=== PATIENT | male | born 1960 | race Caucasian/White ===

== ENCOUNTER → 2019-07-03 17:14 | Outpatient (CLI) | payer OTHER, SELFPAY ==
[2019-07-03 18:33] LABS: Cholesterol 235 mg/dL (200); High Density Lipoprotein 59 mg/dL; PSA,Total - Annual Screen 0.68 ng/mL (0.00-4.00); Triglycerides 253 mg/dL; Very Low Density Lipoprotein 51 mg/dL (5-40)
== END ==
PROVIDERS: PCP Family Medicine; Referring Provider Family Medicine; Visit Provider Family Medicine
DX: Z00.00 Encounter for general adult medical examination without abnormal findings (principal)
CPT/HCPCS: 36415; 80061; 84153; G0103

== ENCOUNTER → 2021-09-19 | Outpatient (CLI) | payer BC, OTHER, SELFPAY ==
--- NOTE | 2021-09-19 07:39 | VDLE_ITS ---
Reason For Study: Chronic venous insufficiency RIGHT LEFT CFV is compressible, spontaneous, phasic, CFV is compressible, spontaneous, phasic, competent and demonstrates normal competent, and demonstrates normal augmentation. augmentation. FV is compressible, spontaneous, phasic, FV is compressible, spontaneous, phasic, competent and demonstrates normal competent and demonstrates normal augmentation. augmentation. POP V is compressible, spontaneous, phasic, POP V is compressible, spontaneous, phasic, competent and demonstrates normal competent and demonstrates normal augmentation. augmentation. T/P Trunk is compressible. T/P Trunk is compressible. PTV is compressible. PTV is compressible. RT PerV is compressible. LT PerV is compressible. SFJ is competent and measures 0.56 x 0.58 cm. SFJ is INCOMPETENT and measures 1.23 x 1.50 GSV proximal thigh measures 0.52 x 0.53 cm. cm. GSV at knee measures 0.49 x 0.52 cm. GSV proximal thigh measures 0.77 x 0.86 cm. GSV INCOMPETENT throughout for greater than GSV at knee measures 0.16 x 0.16 cm. 0.5 seconds. GSV INCOMPETENT throughout for greater than ASV proximal calf is INCOMPETENT for greater 0.5 seconds. than 0.5 seconds and measures 0.20 x 0.18 cm. ASV distal thigh is INCOMPETENT for greater ASV mid calf is INCOMPETENT for greater than than 0.5 seconds and measures 0.75 x 0.83 cm. 0.5 seconds and measures 0.19 x 0.20 cm. ASV proximal calf is INCOMPETENT for greater SSV at junction is competent and measures than 0.5 seconds and measures 0.41 x 0.51 cm. 0.35 x 0.35 cm. SSV at junction is competent and measures Procedure 0.25 x 0.27 cm. This is a venous duplex using B-mode, color flow and spectral Doppler. Exam performed in department. VL/Venous Duplex US - Jerald Extrem Interpretation Summary Deep veins of the lower extremities are bilaterally patent and compressible seg mentally. There is no evidence of deep vein thrombosis on either side. Valvular competence appears in tact within the proximal deep venous systems bilaterally. The great saphenous veins appear bila terally patent and compressible segmentally. The right sapheno-femoral junction is competent . The left sapheno-femoral junction is incompetent . Segmental valvular incompetence is noted within the g reat saphenous veins bilaterally. Small saphenous veins are patent and competent bilaterally. The ac cessory saphenous vein in the right proximal calf is incompetent. The accessory saphenous vein in the right mid-calf is incompetent. The accessory saphenous vein in the left distal thigh is incomp etent. The accessory saphenous vein in the left proximal calf is incompetent. Ordering Physician: Dariel Marte Referring Physician: Anitra Arana M.D. Performed By: Marnie Wright RVT
== END | disposition home or self-care (01) ==
PROVIDERS: PCP Family Medicine; Referring Provider Surgery; Visit Provider Surgery
DX: I87.2 Venous insufficiency (chronic) (peripheral) (principal)
CPT/HCPCS: 93970

== ENCOUNTER → 2021-12-19 | Outpatient (CLI) | payer BC, OTHER, SELFPAY ==
[2021-12-19 12:33] LABS: Hematocrit 42.3 % (40-54); Hemoglobin 14.1 g/dL (13.0-16.5); Mean Corp Hgb Conc 33.3 g/dL (32-36); Mean Corpuscular Hgb 29.3 pg (27.0-32.0); Mean Corpuscular Volume 87.8 fL (80-94); Mean Platelet Vol. 11.2 fl (6.2-12.0); Platelet Count 154 K/mm3 (150-450); RBC Distribution Width CV 13.5 % (11.6-14.6); RBC Distribution Width SD 43.6 fl (35.1-43.9); Red Blood Count 4.82 M/mm3 (4.6-6.2); White Blood Count 4.4 K/mm3 (4.4-11.0)
[2021-12-19 13:03] LABS: Anion Gap 6 (5-15); BUN 26 mg/dL (7-18); BUN/Creat Ratio 24.5 RATIO (10-20); Calcium,Total 9.5 mg/dL (8.5-10.1); Chloride 105 mmol/L (98-107); Creatinine, Serum 1.06 mg/dL (0.70-1.30); EST Glomerular Filtration Rate 76 mL/min (>60); Est Glom Filt Rate - Afr Amer 92 mL/min (>60); Glucose 82 mg/dL (74-106); Potassium 4.3 mmol/L (3.5-5.1); Sodium Level 139 mmol/L (136-145)
== END | disposition home or self-care (01) ==
LOC: LAB 11:35
PROVIDERS: PCP Family Medicine; Referring Provider Surgery; Visit Provider Surgery
DX: Z01.812 Encounter for preprocedural laboratory examination (principal)
CPT/HCPCS: 36415; 80048; 85027

== ENCOUNTER → 2021-12-30 | Outpatient (CLI) | payer BC, OTHER, SELFPAY ==
--- NOTE | 2021-12-30 15:28 | EKG12_ITS ---
Test Reason : PRE OP Blood Pressure : / mmHG Vent. Rate : 055 BPM Atrial Rate : 055 BPM P-R Int : 110 ms QRS Dur : 088 ms QT Int : 426 ms P-R-T Axes : 035 047 048 degrees QTc Int : 407 ms Sinus bradycardia with short MO Otherwise normal ECG Confirmed by MORGAN GERMAN, DEMETRICE ([id number]), social media editor SVETLANA DILLARD ([id number]) on 12/31/2021 8:28:43 AM Referred By: Dariel Marte Confirmed By:DEMETRICE MORA MD
== END | disposition home or self-care (01) ==
LOC: PSN 15:28
PROVIDERS: PCP Family Medicine; Referring Provider Surgery; Visit Provider Surgery
DX: Z01.810 Encounter for preprocedural cardiovascular examination (principal); Z01.812 Encounter for preprocedural laboratory examination
CPT/HCPCS: 93005

== ENCOUNTER 2022-05-06 08:35 | Emergency (ER) | payer OTHER, BC, SELFPAY ==
[2022-05-06 08:36] VITALS: BP 105/76; PULSE 60; RESP 16; TEMP 36.1; O2SAT 100; BMI 25.0
--- NOTE | 2022-05-06 09:30 | EDS_ITS ---
HPI History of Present Illness Chief Complaint: Laceration Detail of Chief Complaint: 6 cm laceration dorsum left hand between the first and second metacarpal cynthia Informant: patient Occured/Mechanism Mechanism/Context: Yes injury Comment: Patient was using a device at work. She sustained a laceration between the first and second metacarpal bone and webspace between the thumb and index finger dorsum of the left hand. Onset/Context/Timing Onset: Hours Context: Sudden Onset Location: Dorsum of left hand Current Severity: Patient has no pain. Maximum Severity: Mild Worsened by: Initial injury Relieved by: Nothing Associated Symptoms Associated Symptoms: Negative for Parasthesia, Weakness or Loss of Funtion Narrative Narrative: Patient is a 61-year-old [id number] male presents with laceration to the dorsum of his right hand. The laceration is sick centimeters in length. He denies paresthesia, anesthesia medics. Tetanus is not up-to-date. He is not on an anticoagulant. He has no history of rheumatic fever, heart murmur SBE or being on immunosuppressive meds. He has no allergies to antibiotics. He denies loss of use of his left hand, fingers or thumb. Tetanus Immunization: Unknown Prior similar symptoms: No Recent Illness/Hospitalization: No PFSH PFSH Medical History no medical history no medical history Allergy/AdvReac Type Severity Reaction Status Date / Time No Known Allergies Allergy Verified 05/06/22 08:36 Social History (Updated 05/06/22 @ 09:[address] Arsen Jeffries MD) substance use type: does not use ROS ROS ED Constitutional Constitutional ED: Denies chills, fever(s), subjective, sweats or weight loss Cardiovascular Cardiovascular: Reports other Details: Further detail HPI narrative ; Denies chest pain, palpitations or racing heartbeat Gastrointestinal Gastrointestinal: Denies nausea or vomiting Integumentary Reports other Details: Further detail HPI narrative ; Denies abscess, Abrasions or rash Neurologic Neurologic: Denies paresthesias or weakness Hematologic/Lymphatic Hematologic/Lymphatic: Denies easy bleeding or easy bruising EXAM Physical Exam Const Vital Signs: 05/06/22 08:36 Temperature 96.9 F L Temperature Source Temporal Pulse Rate 60 Respiratory Rate 16 Blood Pressure 105/76 Blood Pressure Mean 85 Pulse Ox 100 Oxygen Delivery Method Room Air Positive well nourished and well developed General Appearance ED: well developed and NAD; Negative for cyanotic or diapho retic HEENT normocephalic and atraumatic Eyes PERRL and EOMs intact bilaterally Neck full ROM Resp normal respiratory effort and clear to auscultation bilaterally Cardio regular rate, regular rhythm, S1 normal heart sound, S2 normal heart sound and no murmurs Extremity Negative for normal to inspection Extremity Narrative: Laceration between the first and second metacarpal bone dorsal surface left hand involving the webspace. The laceration is 6 cm in length. The laceration does not violate the fascia. Capillary refill is intact. Sensation is intact. The extensor and Reveles tendon is functionally intact. The extensor and the side tendon, extensor pollicis longus were not visualized. They are both functionally intact. Neuro oriented x3, CN's II-XII intact bilaterally, no focal motor deficits and no sensory deficits noted Sensorium / Orientation: alert Skin Skin Narrative: Laceration as previously noted MDM MDM MDM Narrative Medical decision making narrative: Tetanus was updated. Wound was repaired. Please read procedure note. Patient presents from work. Procedures Other Procedures Procedure(s): Repair of left hand laceration. The wound was anesthetized by local filtration using 1% lidocaine. Total of 3 cc was infiltrated. The wound was cleansed. Using 5-0 Ethilon simple interrupted sutures were placed. A total of 15 sutures was placed. Patient tolerated procedure well. Good cosmesis and hemostasis. Discharge Plan Triage Chief Complaint: Laceration ED Provider: Arsen Jeffries Dx/Rx/DC Orders Clinical Impression: Laceration of hand, left Instructions: ED Laceration Hand with ... Primary Care Provider: Anitra Arana Referrals: [facility] [place] [Group of Physicians] - 10 Day for suture removal Anitra Arana MD [Primary Care Provider] - Activity Restrictions/Additional Instructions: 1. Keep wound clean and dry for the next [id number] hours 2. Clean wound with peroxide on a Q-tip 3 times a day then apply bacitracin ointment Disposition Disposition: Home, Self Care
[2022-05-06] MEDS: Lidocaine 1% (20 ml mdv) 20 ML Vial INFILT (09:35)
[2022-05-06] MEDS: Diphth,Pertuss(Acell),Tet Vac 0.5 ML Vial IM (09:42)
== END 2022-05-06 10:29 | disposition home or self-care (01) ==
PROVIDERS: Emergency Provider Emergency Medicine; PCP Family Medicine; Visit Provider Emergency Medicine
DX: S61.412A Laceration without foreign body of left hand, initial encounter (principal); Z23 Encounter for immunization; W26.8XXA Contact with other sharp object(s), not elsewhere classified, initial encounter; Y99.0 Civilian activity done for income or pay
CPT/HCPCS: 12002; 99283

== ENCOUNTER → 2023-10-18 | Outpatient (CLI) | payer BC, OTHER, SELFPAY ==
[2023-10-18 17:48] LABS: Absolute Neutrophil Count 2.7 X10^3/uL (2.0-7.7); Basophil# 0.02 X10^3/uL; Basophil% 0.4 % (0-1); Eosinophil# 0.05 X10^3/uL; Hematocrit 41.9 % (40-54); Hemoglobin 14.1 g/dL (13.0-16.5); Lymphocyte % 34.7 % (19-41); Mean Corp Hgb Conc 33.7 g/dL (32-36); Mean Corpuscular Hgb 29.1 pg (27.0-32.0); Mean Corpuscular Volume 86.6 fL (80-94); Mean Platelet Vol. 11.2 fl (6.2-12.0); Monocyte# 0.62 X10^3/uL; NRBC Flagged by Analyzer 0 % (0-5); Neutrophil # 2.69 X10^3/uL (2.7-7.7); Neutrophil % 51.9 % (47-70); Platelet Count 171 K/mm3 (150-450); RBC Distribution Width CV 13.1 % (11.6-14.6); RBC Distribution Width SD 41.3 fl (35.1-43.9); Red Blood Count 4.84 M/mm3 (4.6-6.2); White Blood Count 5.2 K/mm3 (4.4-11.0)
[2023-10-18 18:38] LABS: Erythrocyte Sedimentation Rate 6 mm/hr (0-20)
[2023-10-18 18:45] LABS: ALB/GLOB Ratio 1.1 RATIO (0.9-2.4); AST(SGOT) 23 U/L (15-37); Alanine Aminotransfer ALT/SGPT 37 U/L (16-61); Albumin, Serum 3.9 g/dL (3.2-5.0); Alkaline Phosphatase 75 U/L (45-117); Anion Gap 4 (5-15); BUN 29 mg/dL (7-18); BUN/Creat Ratio 20.9 RATIO (10-20); Calcium,Total 9.2 mg/dL (8.5-10.1); Chloride 106 mmol/L (98-107); Creatinine, Serum 1.39 mg/dL (0.70-1.30); EST Glomerular Filtration Rate 55 mL/min (>60); Est Glom Filt Rate - Afr Amer 67 mL/min (>60); Globulin 3.5 g/dL (2.2-4.2); Glucose 89 mg/dL (74-106); Potassium 3.8 mmol/L (3.5-5.1); Protein, Total 7.4 g/dL (6.4-8.2); Sodium Level 137 mmol/L (136-145); Thyroid Stim Hormone (TSH) 1.03 uIU/mL (0.358-3.74)
== END | disposition home or self-care (01) ==
LOC: MFPLAB 16:21
PROVIDERS: PCP Family Medicine; Visit Provider Family Medicine
DX: R53.83 Other fatigue (principal)
CPT/HCPCS: 36415; 80053; 84403; 84443; 85025; 85652

== ENCOUNTER → 2023-12-27 | Outpatient (CLI) | payer BC, OTHER, SELFPAY ==
[2023-12-27 18:03] LABS: Absolute Lymphocyte Count 1.44 X10^3/uL (0.83-4.51); Absolute Neutrophil Count 3.7 X10^3/uL (2.0-7.7); Basophil# 0.02 X10^3/uL; Basophil% 0.3 % (0-1); Eosinophil# 0.09 X10^3/uL; Eosinophils% 1.5 % (0-5); Hematocrit 40.9 % (40-54); Hemoglobin 13.2 g/dL (13.0-16.5); Lymphocyte # 1.44 X10^3/ul (0.83-4.51); Lymphocyte % 24.5 % (19-41); Mean Corp Hgb Conc 32.3 g/dL (32-36); Mean Corpuscular Hgb 28.6 pg (27.0-32.0); Mean Corpuscular Volume 88.5 fL (80-94); Mean Platelet Vol. 11.2 fl (6.2-12.0); Monocyte# 0.58 X10^3/uL; Monocyte% 9.9 % (0-10); NRBC Flagged by Analyzer 0 % (0-5); Neutrophil # 3.74 X10^3/uL (2.7-7.7); Neutrophil % 63.6 % (47-70); Platelet Count 177 K/mm3 (150-450); RBC Distribution Width CV 13.2 % (11.6-14.6); RBC Distribution Width SD 43.7 fl (35.1-43.9); Red Blood Count 4.62 M/mm3 (4.6-6.2); White Blood Count 5.9 K/mm3 (4.4-11.0)
[2023-12-27 18:20] LABS: Cholesterol 169 mg/dL (200); High Density Lipoprotein 57 mg/dL; PSA,Total - Annual Screen 0.86 ng/mL (0.00-4.00); Triglycerides 238 mg/dL; Very Low Density Lipoprotein 48 mg/dL (5-40)
== END | disposition home or self-care (01) ==
PROVIDERS: PCP Family Medicine; Referring Provider Family Medicine; Visit Provider Family Medicine
DX: E34.9 Endocrine disorder, unspecified (principal); R53.83 Other fatigue
CPT/HCPCS: 36415; 80061; 84153; 84403; 85025; G0103

== ENCOUNTER → 2024-07-29 | Outpatient (CLI) | payer BC, OTHER, SELFPAY ==
[2024-07-29 08:58] LABS: PSA,Total- Diagnostic 0.72 ng/mL (0.00-4.00)
== END | disposition home or self-care (01) ==
LOC: LAB 07:31
PROVIDERS: PCP Family Medicine; Referring Provider Family Medicine; Visit Provider Family Medicine
DX: E34.9 Endocrine disorder, unspecified (principal)
CPT/HCPCS: 36415; 84153; 84402; 84403